=== PATIENT | female | born 1990 | race Caucasian/White ===

== ENCOUNTER 2018-04-18 01:10 | Emergency (ER) | payer SELFPAY ==
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
[2018-04-18 02:46] VITALS: BP 130/84
== END 2018-04-18 02:44 | disposition left against medical advice (07) ==
LOC: EEVIPCON 01:10
DX: Z77.29 Contact with and (suspected) exposure to other hazardous substances (principal)